=== PATIENT | male | born 1970 | race American Indian/Alaskan Native ===

== ENCOUNTER 2017-05-25 11:38 | Emergency (ER) | payer OTHER ==
[2017-05-25 11:57] VITALS: BP 126/86
--- NOTE | 2017-05-25 12:05 | EDM.PDOC ---
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 This is a work related injury. Patient states he struck his head on a piece of metal which caused the laceration. Patient denies any LOC. No previous head trauma or injury. No visual field disturbances. No other complains. Onset: Today Onset Date: 05/25/17 Onset Time: 11:22 Head Pain Score (Numeric/FACES): 1 - Related Data Allergies Allergy/AdvReac Type Severity Reaction Status Date / Time No Known Allergies Allergy Verified 05/25/17 11:57 Home Meds: Home Meds . [No Known Home Meds] 05/25/17 [History] ED ROS GENERAL - Review of Systems Review Of Systems: See Below Constitutional: Denies: Fever, Chills, Weakness HEENT: Reports: No Symptoms. Denies: Vision Change Respiratory: Denies: Shortness of Breath, Cough Cardiovascular: Denies: Chest Pain, Palpitations Skin: Reports: Wound (cut to top of head) Neurological: Denies: Dizziness, Headache, Numbness, Paresthesia, Tingling ED EXAM, SKIN/RASH Exam: See Below Exam Limited By: No Limitations General Appearance: Alert, No Apparent Distress Eye Exam: Bilateral Eye: EOMI, Normal Inspection, PERRL Ears: Normal External Exam, Normal Canal, Normal TMs Nose: Normal Inspection Throat/Mouth: Normal Inspection, Normal Oropharynx, No Airway Compromise Head: Normocephalic, Other (laceration to top of head) Respiratory/Chest: No Respiratory Distress, Lungs Clear, Normal Breath Sounds Cardiovascular: Regular Rate, Rhythm Neurological: Alert, Oriented, Normal Cognition Skin: Warm, Dry, Normal Color, No Rash, Wound/Incision (1.9cm scalp laceration to top of head) Location, Skin: Head ED SKIN PROCEDURES - Laceration/Wound Repair Head Lac/Wound length In cm: 1.9 Appearance: Subcutaneous, Clean Local Anesthesia - Lidocaine (Xylocaine): Other (None) Skin Prep: Chlorhexidine (Hibiciens), Saline Exploration/Debridement/Repair: Wound Explored, In a Bloodless Field, Explored to Base, No Foreign Material Found, Wound Margins Revised Closed with: Dermabond Sterile Dressing Applied: None Tetanus Status Addressed: Yes Complications: No Course - Vital Signs Last Recorded V/S: Last Vital Signs Temp 37.2 C 05/25/17 11:49 Pulse 107 H 05/25/17 11:49 Resp 16 05/25/17 11:49 BP 126/86 05/25/17 11:49 Pulse Ox 97 05/25/17 11:49 Departure - Departure Time of Disposition: 12:12 Disposition: Home, Self-Care 01 Condition: Good Clinical Impression: Encounter related to worker's compensation claim Scalp laceration Qualifiers: Encounter type: initial encounter Qualified Code(s): S01.01XA - Laceration without foreign body of scalp, initial encounter - Discharge Information Instructions: Stitches, [place], or Adhesive Wound Closure, [id number], Laceration Care, Adult, [id number] Referrals: Nimco Munson MD [Physician] - Forms: ED Department Discharge Additional Instructions: 1. Stay well hydrated and rest 2. Do not try and remove glue, it will remove on its own 3. May shower/bathe as usual 4. Do not scrub the area 5. See your Primary as symptoms warrant - Problem List Review Problem List Initiated/Reviewed/Updated: Yes
== END 2017-05-25 12:30 | disposition home or self-care (01) ==
LOC: VM.ED 11:38
DX: S01.01XA Laceration without foreign body of scalp, initial encounter (principal); Y99.0 Civilian activity done for income or pay; Y92.69 Other specified industrial and construction area as the place of occurrence of the external cause
CPT/HCPCS: 12001; 12031; 99282

== ENCOUNTER 2018-06-01 12:09 | Emergency (ER) | payer OTHER ==
--- NOTE | 2018-06-01 12:24 | EDM.PDOC ---
ED HPI GENERAL MEDICAL PROBLEM - General Chief Complaint: Head Injury Stated Complaint: WORK INJURY Time Seen by Provider: 06/01/18 12:18 Source of Information: Reports: Patient, RN, RN Notes Reviewed, Other (Employer) History Limitations: Reports: No Limitations - History of Present Illness INITIAL COMMENTS - FREE TEXT/NARRATIVE: Patient presents to the ED at [facility] after he sustained a head injury at work. 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 He denies any previous head injury or trauma. No recent brain surgeries. He denies any visual field disturbances. He does complain of a global headache and cervical neck pain. No previous neck problems. He denies any numbness, tingling, or paresthesia to any extremity. This is a work related injury. Otherwise, no other concerns. Onset: Today Onset Date: 06/01/18 Duration: Waxing/Waning Location: Reports: Head, Neck Quality: Reports: Throbbing Severity: Mild Improves with: Reports: Rest Worsens with: Reports: Movement Context: Reports: Trauma. Denies: Activity, Sick Contact Associated Symptoms: Reports: No Other Symptoms Headache Pain Score (Numeric/FACES): 5 - Related Data Allergies Allergy/AdvReac Type Severity Reaction Status Date / Time No Known Allergies Allergy Verified 06/01/18 12:42 Home Meds: Home Meds . 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 Denies: Confusion, Dizziness, Numbness, Paresthesia, Tingling ED EXAM, HEAD INJURY - Physical Exam Exam: See Below Exam Limited By: No Limitations General Appearance: Alert, No Apparent Distress Head: Scalp Lacerations (1.5 cm), Active Bleeding (from scalp laceration) Nexus Criteria: No: Posterior, Midline Cervical Tenderness, Altered Level of Consciousness, Focal Neurological Deficit Eyes: Bilateral Eye: EOMI, Normal Inspection, PERRL Ears: Normal External Exam, Normal TMs Nose: Normal Inspection, No Blood Throat/Mouth: Normal Oropharynx, No Airway Compromise Neck: Full Range of Motion, Normal Alignment, Normal Inspection, Paraspinous Muscle Tender, Tenderness Respiratory: No Respiratory Distress, Lungs Clear, Normal Breath Sounds Cardiovascular: Normal Peripheral Pulses, Regular Rate, Rhythm Back Exam: Normal Inspection, Full Range of Motion. No: Paraspinal Tenderness, Vertebral Tenderness Neurologic: Alert, Oriented x 3 Skin: Normal Color, Warm/Dry, Other (1.5cm vertical laceration to the top of the head; low grade venous ooze; area clean, no evidence of infection) - Jose Coma Score Best Eye Response ([place]): (4) Open Spontaneously Best Verbal Response ([place]): (5) Oriented Best Motor Response (Jose): (6) Obeys Commands Jose Total: 15 ED LACERATION/WOUND & HASEEB PROC - Laceration/Wound Repair [place] Head Lac/wound length in cm: 1.5 Appearance: Subcutaneous, Linear, Clean Distal NVT: Neuro & Vascular Intact Anesthetic Type: Other (None) Skin Prep: Isopropyl Alcohol (Alcohol) Exploration/Debridement/Repair: Wound Explored, In a Bloodless Field, Explored to Base, No Foreign Material Found Closed with: [place] (2) Sterile Dressing Applied: None Tetanus Status Addressed: Yes Complications: No Course - Vital Signs Last Recorded V/S: Last Vital Signs Temp 37.0 C 06/01/18 12:09 Pulse 80 06/01/18 12:09 Resp 16 06/01/18 12:09 BP 128/88 06/01/18 12:09 Pulse Ox 97 06/01/18 12:09 - Orders/Labs/Meds Orders: Active Orders 24 hr Category Date Time Status Cervical Spine wo Cont [CT] Stat Exams 06/01/18 12:18 Taken Head wo Cont [CT] Stat Exams 06/01/18 12:18 Taken - Radiology Interpretation Free Text/Narrative:: CT Head: No acute intracranial process on plain CT CT C-Spine: No acute fractures or dislocation See scanned reports in EMR CT Results Date: 06/01/18 CT Results Time: 13:03 Departure - Departure Time of Disposition: 13:01 Disposition: Home, Self-Care 01 Condition: Good Clinical Impression: Encounter related to worker's compensation claim Head injury Qualifiers: Encounter type: initial encounter Qualified Code(s): S09.90XA - Unspecified injury of head, initial encounter Scalp laceration Qualifiers: Encounter type: initial encounter Qualified Code(s): S01.01XA - Laceration without foreign body of scalp, initial encounter - Discharge Information *PRESCRIPTION DRUG MONITORING PROGRAM REVIEWED*: Not Applicable *COPY OF PRESCRIPTION DRUG MONITORING REPORT IN PATIENT CINDA: Not Applicable Instructions: Laceration Care, Adult, Stitches, [place], or Adhesive Wound Closure Referrals: Nimco Munson MD [Primary Care Provider] - Forms: ED Department Discharge Additional Instructions: 1. Stay well hydrated and rest 2. [place] need to stay in for 10 days 3. May shower/bath as usual 4. Use Tylenol/Advil as needed 5. See your Primary in 10 days for recheck and staple removal - Problem List Review Problem List Initiated/Reviewed/Updated: Yes - My Orders Last 24 Hours: My Active Orders 06/01/18 12:18 Cervical Spine wo Cont [CT] Stat Head wo Cont [CT] Stat - Assessment/Plan Last 24 Hours: My Active Orders 06/01/18 12:18 Cervical Spine wo Cont [CT] Stat Head wo Cont [CT] Stat Assessment:: Head Injury Scalp Laceration Encounter for Workers Comp Plan: CT scans reviewed with patient. No acute pathology. [place] to stay in for 10 days. See PCP in 10 days for a recheck and staple removal.
[2018-06-01 12:42] VITALS: BP 128/88
== END 2018-06-01 13:15 | disposition home or self-care (01) ==
LOC: VM.ED 12:09
DX: S09.90XA Unspecified injury of head, initial encounter (principal); S01.01XA Laceration without foreign body of scalp, initial encounter; W22.8XXA Striking against or struck by other objects, initial encounter; Y99.0 Civilian activity done for income or pay
CPT/HCPCS: 12001; 70450; 72125; 99283